=== PATIENT | male | born 2005 | race Caucasian/White ===

== ENCOUNTER 2025-02-19 18:10 | Emergency (ER) | payer OTHER ==
[~2025-02-19] VITALS: Ht 180.3 cm; Wt 81.0 kg
[2025-02-19 18:42] VITALS: O2SAT 100
[2025-02-19] MEDS: METHOCARBAMOL 750MG TABLET PO SCH (21:04)
[2025-02-19] MEDS: KETOROLAC 30MG/ML VIAL IM ONE (21:04)
[2025-02-19] MEDS ORDERED: IBUP-2028 MT (22:26)
[2025-02-19] MEDS ORDERED: LIDO-53 TP (22:26)
[2025-02-19] MEDS ORDERED: METH-653 MT (22:26)
[2025-02-19 23:05] VITALS: BP 115/68; PULSE 52; RESP 14; TEMP 36.6; O2SAT 100
== END 2025-02-19 23:07 | disposition home or self-care (01) ==
LOC: ER 18:10
DX: S13.4XXA Sprain of ligaments of cervical spine, initial encounter (principal); V43.52XA Car driver injured in collision with other type car in traffic accident, initial encounter; Y92.410 Unspecified street and highway as the place of occurrence of the external cause; Y93.89 Activity, other specified; Y99.8 Other external cause status
CPT/HCPCS: 99285; 70450; 72100; 70486; 72125; 96372; J1885